=== PATIENT | female | born 1995 | race Caucasian/White ===

== ENCOUNTER 2022-09-07 00:27 | Emergency (ER) | payer OTHER, SELFPAY ==
[2022-09-07 00:34] VITALS: BP 141/103; PULSE 78; RESP 18; TEMP 36.5; O2SAT 99; BMI 35.5
--- NOTE | 2022-09-07 00:37 | ED_ITS ---
HPI - Abdominal Pain General Chief Complaint: Abdominal Pain Stated Complaint: EPIGASTRIC PAIN Time Seen by Provider: 09/07/22 00:37 History of Present Illness HPI narrative: She presents to emergency department complaining of epigastric pain. Patient states she's had this pain intermittently for 3 days. She states pain is worse when she eats. It is not related to fatty foods and fried foods could be anything that she eats. She states she just moved here recently and was attributing it to it. She denies any fever, chills, cough. Denies chest, shortness of breath. She denies any fever, chills, or cough. She denies any nausea, vomiting, diarrhea, constipation, flank pain, hematuria, dysuria. She states she has 4 kids and she never had this much pain before. Patient went to [facility] today because she couldn't sleep because of the pain. They did blood work and urinalysis and gave her Pepcid IV. She states she went home with prescription for an antibiotic and Pepcid and when she was at home she continued to have the pain she could not sleep so she came here for evaluation. Patient has an order for a gallbladder ultrasound tomorrow. Last bowel movement was this morning and it was normal. She denies any melena, hematochezia. She states she just finished an antibiotic for a urinary tract infection last week. Related Data Home Medications Medication Instructions Recorded Confirmed No Known Home Medications 09/07/22 09/07/22 Allergies Allergy/AdvReac Type Severity Reaction Status Date / Time No Known Drug Allergies Allergy Verified 09/07/22 00:39 Review of Systems ROS Status of ROS 10 or more systems reviewed and unremarkable except as noted in history and below [facility] Social History Smoking status: Never smoker Exam Narrative Exam Narrative: Nurses notes and vital signs reviewed and patient is not hypoxic. General: Nontoxic, Well-appearing and in no apparent distress. Skin: Warm, dry, no pallor noted. No Rash Head: Normocephalic, atraumatic. Neck: Supple, non-tender. Eye: Pupils are equal, round and EOMI. No scleral icterus. Ears, Nose, Mouth, and Throat: TM clear, no posterior oropharynx erythema or nasal mucosal hypertrophy, uvula is mid-line Oral mucosa is moist Cardiovascular: Regular Rate and Rhythm without murmur, gallop or rub. Respiratory: No accessory muscle use or respiratory distress. Lungs are clear to auscultation, no wheezing, rales or rhonchi Chest Wall: no tenderness Back: No midline thoracic or lumbar vertebral tenderness. No CVA tenderness Musculoskeletal: normal ROM, no calf or popliteal tenderness, no lower extremity edema/swelling GI: Abdomen is soft, non-distended. Normal bowel sounds. No masses appreciated. mild ruq / epigastric tenderness to palpation. No rebound, guarding, or rigidity noted. Neurological: A&O x4. No cranial nerve dysfunction observed. No truncal ataxia. Moves all extremities. Sensation intact. Psychiatric: Cooperative and interactive. Normal mood and affect. Constitutional Vital Signs, click to edit/add: Last Vital Signs Temp 97.7 F 09/07/22 00:34 Pulse 78 09/07/22 00:34 Resp 18 09/07/22 00:34 BP 145/100 H 09/07/22 03:12 Pulse Ox 99 09/07/22 00:34 O2 Del Method Room Air 09/07/22 00:34 Course Vital Signs Vital signs: Vital Signs Temperature 97.7 F 09/07/22 00:34 Pulse Rate 78 09/07/22 00:34 Respiratory Rate 18 09/07/22 00:34 Blood Pressure 141/103 H 09/07/22 00:34 Pulse Oximetry 99 09/07/22 00:34 Oxygen Delivery Method Room Air 09/07/22 00:34 Temperature 97.7 F 09/07/22 00:34 Pulse Rate 78 09/07/22 00:34 Respiratory Rate 18 09/07/22 00:34 Blood Pressure 145/100 H 09/07/22 03:12 Pulse Oximetry 99 09/07/22 00:34 Oxygen Delivery Method Room Air 09/07/22 00:34 MDM - Abdominal Pain MDM Narrative Medical decision making narrative: Records from visit at [facility] were reviewed. Labs were reviewed. Discharge summary was obtained. There is no clinical indication for further laboratory studies at this time. Patient was given a gastrointestinal cocktail here in the emergency department, and [place]. Stated this has not helped her symptoms. The patient drove herself and I cannot give her any narcotic medication for control substance for pain control since she drove herself here. Abdominal series was done. The patient does not have any signs of an acute abdomen. While we're awaiting the results from the abdominal series the patient stated the pain had worsened and it was about an 8 out of 10. She was in mild distress. CT scan of the abdomen was ordered and results were delayed. The patient has gallbladder stones. Ultrasound was recommended. Ultrasound was ordered and they will be here at 7 AM. The patient was given morphine 4 mg at 2 AM which helped relieve her pain. Patient is stable. Patient is signed out to Dr. Cee awaiting some, reevaluation, and disposition. Differential Diagnosis Differential diagnosis: Likely abdominal pain, acute appendicitis, calculus of kidney, constipation, diverticulitis, gastroenteritis, pancreatitis and small bowel obstruction Lab Data Attestation: I reviewed the patient's lab results. Discharge Plan Discharge Chief Complaint: Abdominal Pain Clinical Impression: Abdominal pain Patient Disposition: Still a Patient Prescriptions / Home Meds: No Action No Known Home Medications Referrals: Physician,Non-Staff, [Primary Care Provider] - 1 week
[2022-09-07] MEDS: lidocaine HCL 15 ML, MAG HYDROX/ALUMINUM HYD/SIMETH 30 ML, HYOSCYAMINE SULFATE 0.25 MG PO (01:02)
[2022-09-07] MEDS: OMEPRAZOLE 40 MG CAPSULE.DR PO (01:22)
--- NOTE | 2022-09-07 01:33 | XR_ITS ---
The [address] [address] Patient Name: ZORAIDA ALEXIS MRN: [id number] date: 1995 Sex: F Assigned Patient Location: ER Current Patient Location: Accession/Order Number: [id number] Exam Date: 09/07/2022 01:33 Report Date: 09/07/2022 04:08 At the request of: FESTUS HILL Procedure: XR acute abdomen series EXAM: XR acute abdomen series HISTORY: Pain; technologist notes state epigastric pain for 2 days. COMPARISON: None. TECHNIQUE: Frontal view of the chest, AP erect view of the abdomen and 3 AP supine views of the abdomen performed. FINDINGS: Chest: The trachea is normal. The cardiomediastinal silhouette and hilar shadows are normal. The lung volumes are normal. The lung heard are clear. There is no pneumothorax. There is no osseous abnormality Abdomen: Nonobstructive bowel gas pattern with a large amount of stool within the colon which can be associated with constipation. There is no free air. There are no abnormal mass shadows. There is a calcification within the right side of the pelvis which most commonly represents a phlebolith. There is slight levoscoliosis of the lumbar spine. XR/XR acute abdomen series IMPRESSION: There is no acute cardiopulmonary process. Nonobstructive bowel gas pattern with a large amount of stool within the colon which can be associated with constipation. Electronically authenticated by: MAT HOUSER Date: 09/07/2022 04:08
--- NOTE | 2022-09-07 02:03 | CT_ITS ---
The [address] [address] Patient Name: ZORAIDA ALEXIS MRN: [id number] date: 1995 Sex: F Assigned Patient Location: ER Current Patient Location: ER Accession/Order Number: [id number] Exam Date: 09/07/2022 02:09 Report Date: 09/07/2022 05:35 At the request of: FESTUS HILL Procedure: CT abdomen pelvis wo con EXAM: CT abdomen pelvis wo con HISTORY: Abdominal pain; technologist notes state epigastric pain for 2 days. COMPARISON: None. TECHNIQUE: Routine CT abdomen/pelvis without intravenous contrast. FINDINGS: Lower chest: Moderate-sized hiatal hernia. Liver: Unremarkable. Gallbladder/biliary tree: The gallbladder is dilated containing numerous small calcified and nitrogen containing gallstones. The gallbladder wall does not appear thickened and there is no pericholecystic fluid or inflammation. The biliary tree is not dilated. Pancreas: Unremarkable. Spleen: Mild splenomegaly measuring 14.9 cm in AP dimension. Adrenal glands: Unremarkable. Kidneys: Unremarkable. Bowel: There is a large amount of stool within the ascending colon. The appendix is difficult to differentiate from distal ileal small bowel loops. There is no pericecal inflammatory reaction. There is a moderate hiatal hernia. The stomach is otherwise unremarkable. The small bowel is normal caliber. The bowel gas pattern is nonobstructive. Inflammation: There is no free air or free fluid. There is no inflammatory reaction. Vasculature: The abdominal aorta and the inferior vena cava are unremarkable. Lymphadenopathy: There are no pathologically enlarged lymph nodes within the abdomen/pelvis. Pelvis: The unopacified underdistended urinary bladder is unremarkable. The uterus and adnexal regions are unremarkable. There are a few pelvic phleboliths. Osseous: There is a small amount of fat extending into the umbilicus. There is slight levoscoliosis. There is sclerosis along the iliac margin of the bilateral sacroiliac joints. There are no erosive changes or ankylosis. CT/CT abdomen pelvis wo con IMPRESSION: The gallbladder is dilated and contains numerous small calcified and nitrogen containing gallstones. The gallbladder wall does not appear thickened and there is no pericholecystic fluid or inflammation. The biliary tree is not dilated. A gallbladder ultrasound could be performed for more detailed evaluation. Mild splenomegaly measuring 14.9 cm in AP dimension. Nonobstructive bowel gas pattern with a large amount of stool within the ascending colon. Moderate-sized hiatal hernia. Electronically authenticated by: MAT HOUSER Date: 09/07/2022 05:35
[2022-09-07] MEDS: MORPHINE SULFATE 4 MG/ML VIAL IV (02:18)
[2022-09-07 03:12] VITALS: BP 145/100
--- NOTE | 2022-09-07 05:39 | US_ITS ---
[address] [address] Patient Name: ZORAIDA ALEXIS MRN: [id number] date: 1995 Sex: F Assigned Patient Location: ER Current Patient Location: Accession/Order Number: [id number] Exam Date: 09/07/2022 07:02 Report Date: 09/07/2022 07:50 At the request of: FESTUS HILL Procedure: US right upper quadrant EXAMINATION: US right upper quadrant HISTORY: ruq pain COMPARISON: CT abdomen pelvis 09/07/2022 TECHNIQUE: Transabdominal evaluation of the right upper quadrant. FINDINGS: LIVER: Normal size and echotexture. Color Doppler demonstrates patent hepatic veins. PORTAL VEIN: Duplex Doppler demonstrates normal hepatopetal flow pattern with flow velocity averaging 30 cm/s. GALLBLADDER: Contains multiple 5-10 mm stones. Wall thickness is within normal limits, 2.6 mm. No free fluid. BILIARY: No abnormal dilation or stones. Common bile duct diameter is upper limits of normal, 6 mm. PANCREASE: No visible mass, abnormal atrophy, or duct dilation. KIDNEY: No hydronephrosis. No visible mass or stones. Size: 9.1 x 4.3 x 4.2 cm. US/US right upper quadrant IMPRESSION: 1. Cholelithiasis without ultrasound evidence of acute cholecystitis. Electronically authenticated by: EDVIN MEDRANO Date: 09/07/2022 07:50
== END 2022-09-07 07:33 | disposition home or self-care (01) ==
PROVIDERS: Emergency Provider Emergency Medicine
DX: R10.9 Unspecified abdominal pain (principal); Z87.440 Personal history of urinary (tract) infections
CPT/HCPCS: 74022; 74176; 76705; 96374; 99285

== ENCOUNTER 2022-09-08 22:20 | Emergency (ER) | payer OTHER, SELFPAY ==
[2022-09-08 22:30] VITALS: BP 145/101; PULSE 72; RESP 16; TEMP 36.7; O2SAT 98; BMI 35.5
[2022-09-08 22:34] VITALS: O2SAT 97
[2022-09-08 22:36] VITALS: BP 145/101; O2SAT 98
--- NOTE | 2022-09-08 23:14 | ED.ABDPAIN1 ---
HPI - Abdominal Pain General Chief Complaint: Abdominal Pain Stated Complaint: abdominal pain Time Seen by Provider: 09/08/22 22:55 Source: patient Mode of arrival: walk-in Limitations: no limitations History of Present Illness HPI narrative: This 27-year-old female who is one month presents for evaluation of right upper quadrant abdominal pain that radiates into her right flank. The patient states that the symptoms started on Tuesday, 5days ago. She was seen department and evaluated with a CAT scan, laboratory analysis an ultrasound and told that she has gallstones. She was discharged home with referral to outpatient general surgery. She states she has called the surgeon's office but has not heard back. She was not discharged home with any pain medication. She states she has been eating lettuce and celery thinking that this was healthy food but the pain has recurred. She denies any chest pain or shortness of breath. She has not had a fever. She denies any alcohol use. MD elicited complaint: Reports abdominal pain Related Data Home Medications Medication Instructions Recorded Confirmed No Known Home Medications 09/07/22 09/07/22 Allergies Allergy/AdvReac Type Severity Reaction Status Date / Time No Known Drug Allergies Allergy Verified 09/07/22 00:39 Review of Systems ROS Status of ROS 10 or more systems reviewed and unremarkable except as noted in history and below [facility] Social History Smoking status: Never smoker Exam Narrative Exam Narrative: Nurses note and vital signs reviewed and patient is not hypoxic. Blood pressure is noted to be elevated at 145/101 General: Overweight female, she is hunched over on the cart holding her right upper quadrant and rocking [id number], no respiratory distress, no active vomiting Skin: Warm, dry, no pallor noted. There is no rash noted. Head: Normocephalic, atraumatic Eye: Normal conjunctiva, no drainage, EOMI. PERRL, Scleral icterus noted Ears, Nose, Mouth, and Throat: oral mucosa is moist. Nares patent. Cardiovascular: Regular Rate and Rhythm Respiratory: Patient is in no distress, no accessory muscle use, lungs are clear to auscultation, no wheezing, rales or rhonchi Back: non-tender, no CVA tenderness bilaterally to percussion. GI: Obese, soft, nondistended, epigastric and right upper quadrant tenderness, positive Isaac sign, no right lower quadrant or left upper quadrant tenderness noted Musculoskeletal: The patient has no evidence of calf tenderness, no pitting edema, symmetrical pulses noted bilaterally Neurological: A&O x4, normal speech Psychiatric: Cooperative Constitutional Vital Signs, click to edit/add: Last Vital Signs Temp 98.1 F 09/08/22 22:30 Pulse 72 09/08/22 22:30 Resp 16 09/08/22 22:30 BP 145/101 H 09/08/22 22:30 Pulse Ox 98 09/08/22 22:30 O2 Del Method Room Air 09/08/22 22:30 Course Vital Signs Vital signs: Vital Signs Temperature 98.1 F 09/08/22 22:30 Pulse Rate 72 09/08/22 22:30 Respiratory Rate 16 09/08/22 22:30 Blood Pressure 145/101 H 09/08/22 22:30 Pulse Oximetry 98 09/08/22 22:30 Oxygen Delivery Method Room Air 09/08/22 22:30 Temperature 98.1 F 09/08/22 22:30 Pulse Rate 72 09/08/22 22:30 Respiratory Rate 16 09/08/22 22:30 Blood Pressure 145/101 H 09/08/22 22:30 Pulse Oximetry 98 09/08/22 22:30 Oxygen Delivery Method Room Air 09/08/22 22:30 MDM - Abdominal Pain MDM Narrative Medical decision making narrative: This 27-year-old female presents for evaluation of right upper quadrant abdominal pain that radiates into her right upper back. She was seen here 2 days ago for the same pain and diagnosed with gallstones. She states that she has been trying to eat healthy and has been eating lettuce and celery but her pain recurred. She denies any fever. She denies any nausea or vomiting. She denies any diarrhea. She denies any chest pain or shortness of breath. I reviewed the chart from her previous visit. She did not have any blood work done at that time because she had been seen at [facility]. The blood work had been reviewed at that time but it is not noted in the chart. She did have an ultrasound that showed numerous gallstones without acute cholecystitis and had a CT scan that also showed numerous gallstones without pericholecystic fluid or signs of acute cholecystitis. She was referred to outpatient general surgery but has not received a call back from them yet. The patient and her family recently relocated to the [facility] from [facility]. She was not discharged home with any pain medication. In the emergency department, since she was driving she was medicated with IV fluids, Toradol and Zofran. Reevaluation she states her pain is tolerable. HEENT labs were ordered and she has a normal white count and hemoglobin. She has normal electrolytes. Liver function tests are normal with the exception of an elevated alkaline phosphatase. She has a normal lipase. I discussed with her that she likely does not need emergency surgery but will be referred to outpatient general surgery again. She was given 2 [place] to take as needed until she can fill a prescription of [place] that I gave her. Also gave her a prescription for Zofran to use to prevent nausea and vomiting from the narcotics. She was instructed on following a low-fat, low pectin diet and monitor her triggers for the biliary colic symptoms. She is in agreement with this plan. Lab Data Labs: Lab Results 09/08/22 Range/Units 22:34 WBC 8.7 (4.0-11.0) 10^3/uL RBC 4.92 (4.20-5.40) 10^6/uL Hgb 13.5 (12.0-16.0) g/dL Hct 39.7 (36.0-48.0) % MCV 80.7 L (81.0-99.0) fL MCH 27.4 (26.7-34.0) pg MCHC 34.0 (29.9-35.2) g/dL RDW 13.2 (11.0-15.0) % Plt Count 286 (150-450) 10^3/uL MPV 9.3 L (9.5-13.5) fL Neut % (Auto) 52.9 (43.0-75.0) % Lymph % (Auto) 41.0 (20.5-60.0) % [place] % (Auto) 4.4 (1.7-12.0) % Eos % (Auto) 1.3 (0.9-7.0) % Baso % (Auto) 0.2 (0.2-2.0) % Neut # (Auto) 4.6 (1.4-6.5) 10^3/uL Lymph # (Auto) 3.6 (1.2-3.8) 10^3/uL [place] # (Auto) 0.4 (0.3-0.8) 10^3/uL Eos # (Auto) 0.1 (0.0-0.7) 10^3/uL Baso # (Auto) 0.0 (0.0-0.1) 10^3/uL Abs Immat Gran (auto) 0.02 (0.00-0.03) 10^3/uL Imm/Tot Granulo (auto) 0.2 (0.0-0.5) % Sodium 141 (136-145) mmol/L Potassium 4.1 (3.5-5.1) mmol/L Chloride 104 (98-107) mmol/L Carbon Dioxide 29.7 (21.0-32.0) mmol/L Anion Gap 11.4 BUN 11.0 (7.0-18.0) mg/dL Creatinine 1.10 H (0.55-1.02) mg/dL Est GFR ( Amer) >60 (>=60) Est GFR (Non-Af Amer) 59 L (>=60) BUN/Creatinine Ratio 10.0 Glucose 102 (74-106) mg/dL Calcium 8.9 (8.5-10.1) mg/dL Total Bilirubin 0.3 (0.2-1.0) mg/dL AST 20 (15-37) U/L ALT 47 (14-59) U/L Alkaline Phosphatase 129 H (46-116) U/L Total Protein 7.4 (6.4-8.2) g/dL Albumin 3.9 (3.4-5.0) g/dL Globulin 3.5 g/dL Albumin/Globulin Ratio 1.1 Lipase 198.0 (73.0-393.0) U/L Discharge Plan Discharge Chief Complaint: Abdominal Pain Clinical Impression: Biliary colic Time of Disposition Decision: 00:14 Condition: Good Prescriptions / Home Meds: No Action No Known Home Medications Instructions: Biliary Colic (ED), Gallstones (ED) Stand Alone Forms: Portal Instructions Referrals: Physician,Non-Staff, [Primary Care Provider] - 1 week
[2022-09-08 23:21] LABS: Basophils Percent Auto 0.2 % (0.2-2.0); Eosinophils Absolute Auto 0.1 10^3/uL (0.0-0.7); Eosinophils Percent Auto 1.3 % (0.9-7.0); Hematocrit 39.7 % (36.0-48.0); Hemoglobin 13.5 g/dL (12.0-16.0); Immature Granulocytes Abs Auto 0.02 10^3/uL (0.00-0.03); Immature Granulocytes Pct Auto 0.2 % (0.0-0.5); Lymphocytes Absolute Auto 3.6 10^3/uL (1.2-3.8); Mean Corpuscular Hemoglobin 27.4 pg (26.7-34.0); Mean Corpuscular Volume 80.7 fL (81.0-99.0); Mean Platelet Volume 9.3 fL (9.5-13.5); Monocytes Absolute Auto 0.4 10^3/uL (0.3-0.8); Monocytes Percent Auto 4.4 % (1.7-12.0); Neutrophils Absolute Auto 4.6 10^3/uL (1.4-6.5); Neutrophils Percent Auto 52.9 % (43.0-75.0); Platelet Count 286 10^3/uL (150-450); Red Blood Count 4.92 10^6/uL (4.20-5.40); Red Cell Distribution Width 13.2 % (11.0-15.0); White Blood Count 8.7 10^3/uL (4.0-11.0)
[2022-09-08 23:34] LABS: Alanine Aminotransferase 47 U/L (14-59); Albumin Globulin Ratio 1.1; Albumin Level 3.9 g/dL (3.4-5.0); Alkaline Phosphatase 129 U/L (46-116); Anion Gap 11.4; Aspartate Amino Transferase 20 U/L (15-37); Bilirubin Total 0.3 mg/dL (0.2-1.0); Calcium 8.9 mg/dL (8.5-10.1); Carbon Dioxide 29.7 mmol/L (21.0-32.0); Chloride 104 mmol/L (98-107); Estimated GFR (African America >60 (>=60); Estimated GFR (Non-African Ame 59 (>=60); Globulin 3.5 g/dL; Glucose 102 mg/dL (74-106); Potassium 4.1 mmol/L (3.5-5.1); Sodium 141 mmol/L (136-145); Total Protein 7.4 g/dL (6.4-8.2)
[2022-09-08] MEDS: 0.9 % SODIUM CHLORIDE 1,000 ML 1000 ML IV (23:37)
[2022-09-08] MEDS: KETOROLAC TROMETHAMINE 30 MG/ML VIAL IVP (23:37)
[2022-09-08] MEDS: FAMOTIDINE/PF 20 MG/2 ML VIAL IV (23:38)
[2022-09-09] MEDS: HYDROCODONE/ACETAMINOPHEN 5-325 MG TABLET 2 TAB PO (00:36)
[2022-09-09 00:40] VITALS: O2SAT 97
[2022-09-09 00:41] VITALS: BP 136/90
== END 2022-09-09 00:49 | disposition home or self-care (01) ==
PROVIDERS: Emergency Provider Emergency Medicine
DX: K80.50 Calculus of bile duct without cholangitis or cholecystitis without obstruction (principal)
CPT/HCPCS: 36415; 80053; 83690; 85025; 96374; 96375; 99284

== ENCOUNTER 2022-10-05 09:26 | Outpatient (OUT) | payer OTHER, SELFPAY ==
[2022-10-05 10:39] LABS: Alanine Aminotransferase 46 U/L (14-59); Albumin Globulin Ratio 0.9; Albumin Level 3.4 g/dL (3.4-5.0); Alkaline Phosphatase 104 U/L (46-116); Aspartate Amino Transferase 15 U/L (15-37); Bilirubin Direct 0.1 mg/dL (0.0-0.2); Bilirubin Total 0.4 mg/dL (0.2-1.0); Globulin 3.6 g/dL
== END 2022-10-05 09:27 | disposition home or self-care (01) ==
LOC: PST 09:27
PROVIDERS: Visit Provider Surgery
DX: Z01.812 Encounter for preprocedural laboratory examination (principal); K80.20 Calculus of gallbladder without cholecystitis without obstruction
CPT/HCPCS: 36415; 80076; 83690

== ENCOUNTER 2022-10-13 09:36 | Day surgery (SDC) | payer OTHER, SELFPAY ==
[2022-10-05 10:13] VITALS: BP 126/79; PULSE 82; RESP 16; TEMP 36.2; O2SAT 98; BMI 38.6
[2022-10-13] VITALS (12 sets, daily range): BP systolic 133–167; BP diastolic 85–109; PULSE 79–103; RESP 14–22; TEMP 36.1–36.6; O2SAT 88–100; BMI 38.6
--- NOTE | 2022-10-13 | OP_ITS ---
OPERATION DATE: ??10/13/2022 PREOPERATIVE DIAGNOSIS:? Symptomatic cholelithiasis. POSTOPERATIVE DIAGNOSIS:? Acute and chronic cholecystitis with hydrops of the gallbladder with calculus. PROCEDURE:? Laparoscopic cholecystectomy. SURGEON:? Adrián Wood M.D. ANESTHESIA:? General endotracheal. ESTIMATED BLOOD LOSS:? Less than 12 mL. INDICATIONS AND CONSENT:? Patient is a 27-year-old female with a several month history of upper abdominal pain.? Workup revealed several gallstones.? She has normal liver function tests.? Indications, risks, benefits, alternatives of proceeding with laparoscopic cholecystectomy were explained extensively to the patient, including risks of bleeding, infection, bile duct injury, bowel injury, need for intraoperative cholangiogram, postoperative ERCP, open procedure, blood clot, pulmonary embolus, heart attack, anesthetic complications, need for further surgery.? All of her questions were answered.? Informed consent was obtained. PROCEDURE:? Patient brought to the operating room, placed in the supine position.? General anesthesia was induced.? She was prepped and draped in the usual sterile fashion.? A supraumbilical incision was made with the scalpel blade and carried down through subcutaneous tissue using blunt dissection.? The fascia was grasped and incised.? Two 0 Vicryl stay sutures were placed in either side of the midline fascia.? The Herrmann trocar was then inserted and secured using the stay sutures.? The abdomen was then insufflated with carbon dioxide to a pressure of 15 mm/Hg.? The scope was then inserted and the upper abdomen was visualized.? The patient was placed in reverse Trendelenburg position with the right side up.? There was noted to be distention of the gallbladder with both acute and chronic cholecystitis noted.? The gallbladder was then aspirated with an aspirating needle to look for clear bile, indicative of hydrops of the gallbladder.? Two 5 mm ports were then placed in the right upper quadrant under direct visualization.? The gallbladder was then grasped with an atraumatic grasper.? At the fundus, retracted cephalad on the patient?s right.? The infundibulum was then grasped and retracted laterally and inferiorly.? There was a stone in the lower infundibulum, near the neck of the gallbladder.? Dissection was begun just below the infundibulum, where the cystic duct and cystic artery as well as several posterior branches were all dissected free.? The cystic duct was noted to be of normal caliber.? The infundibulum was completely freed up from the liver.? Critical view of safety was obtained.? The cystic duct was then clipped with two Hem-O-Brandon clips proximally towards the common duct and one distally towards the gallbladder and then divided.? The main artery was controlled with Hem-O-Brandon in the same manner and then divided.? The posterior branches were controlled with regular clips and then divided.? The gallbladder was then taken down from the liver bed using electrocautery.? There were some chronic inflammatory changes noted.? Once the gallbladder was completely removed, it was brought out in an Endocatch bag through the umbilical port site.? It was sent off to Pathology.? The upper abdomen was then copiously irrigated with saline until clear.? There was good hemostasis.? No evidence of bile leak from the liver bed.? All port sites were examined upon withdrawal of the ports.? There was noted to be good hemostasis.? The umbilical port site fascia was then closed with 0 Vicryl figure of eight suture.? All port sites were infiltrated with 0.5% Marcaine.? The skin was then closed with interrupted 4-0 subcuticular Monocryl sutures and skin glue.? Sterile pressure dressings were applied to the umbilical incision.? Patient tolerated procedure well, was extubated and sent to recovery room in good condition. CC:? Patient?s family physician ANDI
[2022-10-13] MEDS: LACTATED RINGER'S SOLUTION 1,000 ML 50 ML IV (10:09)
[2022-10-13 10:31] LABS: HCG Qualitative NEGATIVE (NEGATIVE)
[2022-10-13] MEDS: AMPICILLIN SODIUM/SULBACTAM NA 3 GM in 0.9 % SODIUM CHLORIDE 100 ML IV (10:37)
[2022-10-13] MEDS: BUPIVACAINE HCL 0.5% PF 50 MG/10 ML VIAL 20 ML INJ (12:00)
[2022-10-13] MEDS: 0.9 % SODIUM CHLORIDE 1,000 ML 50 ML IV (12:18)
[2022-10-13] MEDS: MEPERIDINE HCL/PF 25 MG/ML VIAL IVP (12:24)
[2022-10-13] MEDS: PROMETHAZINE HCL 25 MG/ML VIAL 12.5 MG IV (13:14)
[2022-10-13] MEDS: HYDROMORPHONE HCL 0.5 MG/0.5 ML SYRINGE IV (13:19)
--- NOTE | 2022-10-13 13:35 | PC.NURSE ---
medicated with oral pain medication as ordered
--- NOTE | 2022-10-13 13:37 | PC.NURSE ---
c/o nausea; no emesis; medicated with antiemetic as ordered
--- NOTE | 2022-10-13 13:38 | PC.NURSE ---
medicated with IV Dilaudid as ordered; continuous pulse ox on and at bedside
--- NOTE | 2022-10-13 14:03 | PC.NURSE ---
No futher c/o nausea
== END 2022-10-13 15:12 | disposition home or self-care (01) ==
PROVIDERS: Visit Provider Surgery
PROC: (CPT 790; principal; 2022-10-13 10:45)
DX: K80.12 Calculus of gallbladder with acute and chronic cholecystitis without obstruction (principal); E03.9 Hypothyroidism, unspecified; K44.9 Diaphragmatic hernia without obstruction or gangrene; E66.9 Obesity, unspecified; Z68.38 Body mass index [BMI] 38.0-38.9, adult; K82.1 Hydrops of gallbladder
CPT/HCPCS: 47562; 36415; 84703; 88304; J1170; J2704